=== PATIENT | female | born 1985 | race Caucasian/White ===

== ENCOUNTER 2017-06-03 16:14 | Outpatient (CLI) | END 2017-06-03 20:02 | disposition home or self-care (01) ==

== ENCOUNTER 2017-10-07 04:37 | Inpatient (IN) | END 2017-10-10 13:43 | disposition home or self-care (01) | DRG 766 ==

== ENCOUNTER 2018-10-01 14:54 | Emergency (ER) | payer MEDICAID ==
[~2018-10-01] VITALS: Ht 157.5 cm; Wt 64.1 kg
[2018-10-01 15:19] VITALS: Ht 157.5 cm; Wt 64.1 kg
[2018-10-01] MEDS ORDERED: KETOROLAC 15 MG INJ IV STA (17:41)
--- NOTE | 2018-10-01 17:46 | ERD ---
ER Documentation Chief Complaint Chief Complaint PT HAS AP X 2 DAYS 03/13 AND NAUSEA HPI This is a 33-year-old female patient who presents to the emergency room with complaint of abdominal pain and nausea x2 days. No vomiting, no diarrhea, no fever, no surgical history. No medical problems. LMP 2 weeks ago. ROS All systems reviewed and are negative except as per history of present illness. Medications Home Meds No Active Prescriptions or Reported Meds Allergies Allergies: Coded Allergies: No Known Allergy (Unverified , 10/01/18) PMhx/Soc Medical and Surgical Hx: pt denies Medical Hx FmHx Family History: No diabetes, No coronary disease, No other Physical Exam Vitals Vital Signs Date Temp Pulse Resp B/P (MAP) Pulse Ox O2 O2 Flow FiO2 Time Delivery Rate 10/01/18 98.7 82 18 155/90 100 15:19 (111) Physical Exam Const: No acute distress Head: Atraumatic Eyes: Normal Conjunctiva ENT: Normal External Ears, Nose and Mouth. Neck: Full range of motion. No meningismus. Resp: Clear to auscultation bilaterally Cardio: Regular rate and rhythm, no murmurs Abd: Soft, tender @ RUQ +hernandez, non distended. Normal bowel sounds Skin: No petechiae or rashes Back: No midline or flank tenderness Ext: No cyanosis, or edema Neur: Awake and alert Psych: Normal Mood and Affect Result Diagram: 10/01/18 1755 10/01/18 1755 Results 24 hrs Laboratory Tests Test 10/01/18 17:55 10/01/18 17:58 White Blood Count 11.3 10^3/ul Red Blood Count . 10^6/ul Hemoglobin 12.3 g/dl Hematocrit 37.2 % Mean Corpuscular Volume 88.8 fl Mean Corpuscular Hemoglobin 29.4 pg Mean Corpuscular Hemoglobin Concent 33.1 g/dl Red Cell Distribution Width 12.7 % Platelet Count 261 10^3/UL Mean Platelet Volume 10.0 fl Immature Granulocytes % 0.400 % Neutrophils % 80.7 % Lymphocytes % 12.9 % Monocytes % 5.3 % Eosinophils % 0.5 % Basophils % 0.2 % Nucleated Red Blood Cells % 0.0 /100WBC Immature Granulocytes # 0.050 10^3/ul Neutrophils # 9.1 10^3/ul Lymphocytes # 1.5 10^3/ul Monocytes # 0.6 10^3/ul Eosinophils # 0.1 10^3/ul Basophils # 0.0 10^3/ul Nucleated Red Blood Cells # 0.0 10^3/ul Urine Color YELLOW Urine Clarity SLIGHTLY CLOUDY Urine pH 5.0 Urine Specific [place] 1.018 Urine Ketones NEGATIVE mg/dL Urine Nitrite NEGATIVE mg/dL Urine Bilirubin NEGATIVE mg/dL Urine Urobilinogen NEGATIVE mg/dL Urine Leukocyte Esterase NEGATIVE Meagan/ul Urine Microscopic RBC 1 /HPF Urine Microscopic WBC 2 /HPF Urine Squamous Epithelial Cells FEW /HPF Urine Mucus FEW /HPF Urine Hemoglobin 1+ mg/dL Urine Glucose NEGATIVE mg/dL Urine Total Protein NEGATIVE mg/dl Sodium Level 137 mmol/L Potassium Level 4.8 mmol/L Chloride Level 103 mmol/L Carbon Dioxide Level 23 mmol/L Anion Gap 11 Blood Urea Nitrogen 8 mg/dl Creatinine 0.38 mg/dl Est Glomerular Filtrat Rate mL/min > 60 mL/min Glucose Level 101 mg/dl Calcium Level 9.5 mg/dl Total Bilirubin 0.4 mg/dl Direct Bilirubin 0.00 mg/dl Indirect Bilirubin 0.4 mg/dl Aspartate Amino Transf (AST/SGOT) 21 IU/L Alanine Aminotransferase (ALT/SGPT) 18 IU/L Alkaline Phosphatase 77 IU/L Total Protein 8.3 g/dl Albumin 4.2 g/dl Globulin 4.10 g/dl Albumin/Globulin Ratio 1.02 Lipase 50 U/L POC Beta HCG, Qualitative NEGATIVE Current Medications Medications Dose Sig/Harjinder Start Time Status Last (Trade) Ordered Route PRN Stop Time Admin Dose Reason Admin Ketorolac 15 mg ONCE STAT 10/01/18 DC 10/01/18 Tromethamine IV 17:41 18:09 (Toradol) 10/01/18 17:43 Procedures/MDM This is a 33-year-old female patient who presents to the emergency room with abdominal pain x2 days. ED COURSE: The patient was stable throughout ED course. I kept the patient and/or family informed of laboratory and diagnostic imaging results throughout the ED course. DIAGNOSTIC IMAGING: US: cholelithiasis Read by radiologist. PROCEDURES: None. MEDICATIONS GIVEN: Toradol Patient tolerated medication well with no adverse reactions. Patient reported improvement in pain. MDM: Examination and work-up consistent with cholelithiasis. Low suspicion for cholecystitis, choledocholithiasis, AAA, pancreatitis, abdominal obstruction, or other life-threatening etiology. There are no signs of peritonitis or other life-threatening or serious etiology. The patient appears stable for discharge and has been instructed to return immediately if the symptoms worsen in any way, or in 8-12 hours if not improved for re-evaluation. The patient has been instructed to return if the symptoms worsen or change in any way. DISPOSITION: The patient has been discharge home to follow-up with community physician. Departure Diagnosis: Primary Impression: Abdominal pain Additional Impression: Cholecystitis Condition: Stable Patient Instructions: Abdominal Pain, Cholecystitis, Confirmed Referrals: ADRIANA HOROWITZ MD [facility] Additional Instructions: Thank you very much for allowing us to participate in your care. Your health and safety is our top priority at [facility]. Call your primary care doctor TOMORROW for an appointment during the next 2-4 days and bring all the information and medications prescribed. Have prescriptions filled and follow precisely the directions on the label. If the symptoms get worse and your provider is unavailable, return to the Emergency Department immediately. CARLITOS LEWIS NP Oct 01, 2018 17:46
[2018-10-01] MEDS ORDERED: IBUP-1542 PO (19:45)
[2018-10-01 19:58] VITALS: BP 131/79; PULSE 73; RESP 18
== END 2018-10-01 20:00 | disposition home or self-care (01) ==
LOC: FTE 14:54
DX: K81.9 Cholecystitis, unspecified (principal)
CPT/HCPCS: 36415; 76705; 80053; 81001; 81025; 83690; 85025; 96374; J1885; Z7502